=== PATIENT | female | born 1970 | race Caucasian/White ===

== ENCOUNTER 2017-02-08 11:26 | Emergency (ER) | payer BC, OTHER ==
[2017-02-08 12:18] VITALS: BP 174/93
[2017-02-08] MEDS ORDERED: Sodium Chloride 0.9% 500 ML IV SCH (12:30)
[2017-02-08 12:41] LABS: CHLORIDE,CL 101 mmol/L (98-115); SODIUM,NA 141 mmol/L (136-145)
[2017-02-08] MEDS ORDERED: Ondansetron 4 MG/2 ML SDV IVPUSH ONE (12:44)
[2017-02-08] MEDS ORDERED: HYDROmorphone 1 MG/ML Syringe IVPUSH ONE ×3 (12:44→14:57)
[2017-02-08] MEDS ORDERED: Sodium Chloride 0.9% 50 ML SDV IV ONE (13:00)
[2017-02-08] MEDS ORDERED: Iopamidol 612 MG/ML 100 ML Bottle IV ONE (13:00)
[2017-02-08] MEDS ORDERED: Acetaminophen 500 MG Tab PO ONE (13:07)
[2017-02-08] MEDS ORDERED: Sodium Chloride 0.9% 50 ML SDV FLUSH ONE (13:30)
[2017-02-08] MEDS ORDERED: Sulfamethoxazole/Trimethoprim 800-160 MG Tab PO ONE ×2 (14:58→15:33)
[2017-02-08] MEDS ORDERED: metroNIDAZOLE 500 MG Tab PO SCH (15:00)
[2017-02-08] MEDS ORDERED: metroNIDAZOLE 500 MG Tab PO ONE (15:33)
--- NOTE | 2017-02-08 15:42 | EDM.PDOC ---
ED HPI GENERAL MEDICAL PROBLEM - General Chief Complaint: Abdominal Pain Stated Complaint: POSSIBLE KIDNEY STONE OR APPY Time Seen by Provider: 02/08/17 11:40 Source of Information: Reports: Patient History Limitations: Reports: No Limitations - History of Present Illness INITIAL COMMENTS - FREE TEXT/NARRATIVE: 46-year-old female presents to emergency room with complaints of right lower quadrant umbilical pain and right flank pain. Patient reports her symptoms started approximately at midnight last night. Her symptoms seem to worsen by 3: 00 this morning. She rated the pain as 6 out of 10 now. She knows the pain will go anywhere from 12 to stabbing. Is worse when sitting and better with rest. She denied any nausea vomiting or diarrhea. She did feel a mild fevers and chills. She does report a history of complete hysterectomy with removal of the ovaries cholecystectomy. She also has had a history of diverticulitis and she states that her last colonoscopy was 5 years ago. She denies any blood in your urine, denies dysuria, denies blood in her stool or black stools. She denies significant change in her diet and denies anorexia. Onset: Gradual Onset Date: 02/14/17 Onset Time: 00:00 Duration: Hour(s):, Getting Worse Location: Reports: Abdomen Quality: Reports: Dull Severity: Moderate Improves with: Reports: None Worsens with: Reports: None Associated Symptoms: Reports: Fever/Chills. 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 Right Lower Abdominal Pain Score (Numeric/FACES): 6 - Related Data Allergies Allergy/AdvReac Type Severity Reaction Status Date / Time No Known Allergies Allergy Verified 02/08/17 12:18 Home Meds: Home Meds Metoprolol Succinate [Toprol XL] 50 mg PO DAILY 11/05/13 [History] Cyclobenzaprine HCl [Cyclobenzaprine HCl] 10 mg PO DAILY 07/20/16 [History] Ergocalciferol (Vitamin D2) [Vitamin D2] 2,000 unit PO DAILY 07/20/16 [History] Hydrochlorothiazide 25 mg PO DAILY 07/20/16 [History] Multivitamin [Multivitamins] 1 tab PO DAILY 07/20/16 [History] OXcarbazepine [Oxtellar Xr] 150 mg PO BID 07/20/16 [History] metFORMIN HCl [Metformin HCl ER] 2,000 mg PO BID 07/20/16 [History] FLUoxetine [PROzac] 20 mg PO DAILY 02/08/17 [History] Ondansetron [Ondansetron] 1 tab PO ASDIRECTED PRN 02/08/17 [History] SUMAtriptan Succinate [Sumatriptan Succinate] 1 tab PO ASDIRECTED PRN 02/08/17 [ History] Past Medical History HEENT History: Reports: Impaired Vision Cardiovascular History: Reports: High Cholesterol, Hypertension Respiratory History: Reports: Asthma Gastrointestinal History: Reports: Irritable Bowel Syndrome Genitourinary History: Reports: None 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: Musculoskeletal History: Reports: None Neurological History: Reports: Concussion, Headaches, Chronic, Migraines Psychiatric History: Reports: Addiction, Anxiety, Depression, Panic Attack Endocrine/Metabolic History: Reports: Obesity/BMI 30+ Dermatologic History: Reports: Eczema - Infectious Disease History Infectious Disease History: Reports: Chicken Pox, Herpes - Past Surgical History Head Surgeries/Procedures: Reports: None HEENT Surgical History: Reports: None Cardiovascular Surgical History: Reports: None Respiratory Surgical History: Reports: None GI Surgical History: Reports: Cholecystectomy, Colonoscopy, Hernia, Abdominal Female Surgical History: Reports: Section, Hysterectomy, Oophorectomy Endocrine Surgical History: Reports: None Neurological Surgical History: Reports: None Musculoskeletal Surgical History: Reports: Shoulder Surgery Dermatological Surgical History: Reports: None Social & Family History - Tobacco Use Smoking Status *Q: Current Every Day Smoker Years of Tobacco use: 25 Packs/Tins Daily: 2 Used Tobacco, but Quit: No Second Hand Smoke Exposure: Yes - Caffeine Use Caffeine Use: Reports: Coffee - Alcohol Use Days Per Week of Alcohol Use: 4 Number of Drinks Per Day: 15 Total Drinks Per Week: 60 - Recreational Drug Use Recreational Drug Use: No ED ROS GENERAL - Review of Systems Review Of Systems: See Below Constitutional: Reports: Fever. Denies: Chills HEENT: Reports: No Symptoms Respiratory: Reports: No Symptoms Cardiovascular: Reports: No Symptoms Endocrine: Reports: No Symptoms GI/Abdominal: Reports: Abdominal Pain. Denies: Bloody Stool, Constipation, Diarrhea, Distension, Nausea, Vomiting : Reports: Flank Pain. Denies: Dysuria, Hematuria Musculoskeletal: Reports: No Symptoms Skin: Reports: No Symptoms Neurological: Reports: No Symptoms Psychiatric: Reports: No Symptoms Hematologic/Lymphatic: Reports: No Symptoms Immunologic: Reports: No Symptoms ED EXAM, GI/ABD - Physical Exam Exam: See Below Exam Limited By: No Limitations General Appearance: Alert, WD/WN, Mild Distress Eyes: Bilateral: EOMI Ears: Normal External Exam, Normal Canal, Hearing Grossly Normal, Normal TMs Nose: Normal Inspection, No Blood Throat/Mouth: Normal Inspection, Normal Lips, Normal Oropharynx, Normal Voice, No Airway Compromise Head: Atraumatic Neck: Normal Inspection, Supple, Full Range of Motion Respiratory/Chest: No Respiratory Distress, Lungs Clear, Normal Breath Sounds, No Accessory Muscle Use Cardiovascular: Normal Peripheral Pulses, Regular Rate, Rhythm, No Murmur GI/Abdominal: No Organomegaly, No Distention, No Mass, Hypoactive Bowel Sounds, Tenderness (umbilical, right lower quadrant), McBurney's Sign. No: Distention, Guarding, Rigidity, Obturator Sign, Rovsing's Sign, Simpson's Sign, Aortic Pulsation, Aortic Bruit (Female) Exam: Other (history of total hysterectomy) Back Exam: Normal Inspection, Full Range of Motion. No: CVA Tenderness (L), CVA Tenderness (R), Muscle Spasm, Paraspinal Tenderness, Vertebral Tenderness Extremities: Normal Inspection, Normal Range of Motion, Non-Tender, No Pedal Edema, Normal Capillary Refill Neurological: Alert, Oriented, Normal Cognition Psychiatric: Normal Affect, Normal Mood Skin Exam: Warm, Dry, Intact, Normal Color, No Rash Lymphatic: No Adenopathy Course - Vital Signs Last Recorded V/S: Last Vital Signs Temp 99.5 F 02/08/17 13:41 Pulse 115 H 02/08/17 12:14 Resp 16 02/08/17 12:14 BP 174/93 H 02/08/17 12:14 Pulse Ox 96 02/08/17 12:14 - Orders/Labs/Meds Orders: Active Orders 24 hr Category Date Time Status Abdomen Pelvis w Cont [CT] Stat Exams 02/08/17 13:04 Ordered Sodium Chloride 0.9% [Normal Saline] 500 ml Med 02/08/17 12:30 Active IV .BOLUS metroNIDAZOLE [Flagyl] Med 02/08/17 15:00 Active 500 mg PO Q8H Medication Orders Sodium Chloride (Normal Saline) 500 mls @ 1,000 mls/hr IV .BOLUS FELIX Last Admin: 02/08/17 13:05 Dose: 1,000 mls/hr Metronidazole (Flagyl) 500 mg PO Q8H FELIX Last Admin: 02/08/17 15:05 Dose: 500 mg Labs: Laboratory Tests 02/08/17 02/08/17 02/08/17 Range/Units 12:10 12:10 13:05 WBC 13.8 H (5.0-10.0) 10^3/uL RBC 5.10 (3.80-5.50) 10^6/uL Hgb 15.7 (12.0-16.0) g/dL Hct 45.8 (37.0-47.0) % MCV 89.7 (82.0-92.0) fL MCH 30.7 (27.0-31.0) pg MCHC 34.3 (32.0-36.0) g/dL RDW 12.5 (11.5-14.5) % Plt Count 436 H (150-300) 10^3/uL MPV 7.7 (7.4-10.4) fL Neut % (Auto) 76.0 H (50.0-70.0) % Lymph % (Auto) 16.6 L (20.0-40.0) % [place] % (Auto) 6.6 (2.0-8.0) % Eos % (Auto) 0.8 L (1.0-3.0) % Baso % (Auto) 0.0 (0.0-1.0) % Neut # (Auto) 10.5 H (2.5-7.0) 10^3/uL Lymph # (Auto) 2.3 (1.0-4.0) 10^3/uL [place] # (Auto) 0.9 H (0.1-0.8) 10^3/uL Eos # (Auto) 0.1 (0.1-0.3) 10^3/uL Baso # (Auto) 0.0 (0.0-0.1) 10^3/uL Sodium 141 (136-145) mmol/L Potassium 3.6 (3.3-5.3) mmol/L Chloride 101 (98-115) mmol/L Carbon Dioxide 27.2 (21.0-32.0) mmol/L BUN 13 (6-25) mg/dL Creatinine 0.65 (0.51-1.17) mg/dL Est Cr Clr Drug Dosing 89.46 mL/min Estimated GFR (MDRD) > 60 mL/min Glucose 131 H (70-110) mg/dL Calcium 10.0 (8.7-10.3) mg/dL Total Bilirubin 0.3 (0.2-1.0) mg/dL Direct Bilirubin 0.1 (0.0-0.2) mg/dL AST 13 L (15-37) U/L ALT 28 (12-78) U/L Alkaline Phosphatase 134 H (46-116) IU/L Total Protein 8.2 (6.4-8.2) g/dL Albumin 4.03 (3.00-4.80) g/dL Amylase 27 (25-125) U/L Lipase 118 (73-393) U/L Specimen Type Urincc Urine Color Yellow (YELLOW) Urine Appearance Slightly cloudy H (CLEAR) Urine pH 7.0 (5.0-9.0) Ur Specific [place] 1.020 (1.005-1.030) Urine Protein Negative (NEGATIVE) mg/dL Urine Glucose (UA) Negative (NEGATIVE) mg/dL Urine Ketones Negative (NEGATIVE) mg/dL Urine Occult Blood Trace-intact H (NEGATIVE) Urine Nitrite Negative (NEGATIVE) Urine Bilirubin Negative (NEGATIVE) Urine Urobilinogen 0.2 (0.2-1.0) E.U./dL Ur Leukocyte Esterase Negative (NEGATIVE) Urine RBC 0-5 /HPF Urine WBC 0-5 /HPF Ur Epithelial Cells Few /LPF Urine Bacteria Few (NONE TO FEW) /HPF Urine Mucus Moderate H (NEGATIVE) /LPF Meds: Medications Generic Name Dose Route Start Last Admin Trade Name Freq PRN Reason Stop Dose Admin Sodium Chloride 500 mls @ 1,000 mls/hr 02/08/17 12:30 02/08/17 13:05 Normal Saline IV 1,000 mls/hr .BOLUS FELIX Administration Metronidazole 500 mg 02/08/17 15:00 02/08/17 15:05 Flagyl PO 500 mg Q8H FELIX Administration Discontinued Medications Generic Name Dose Route Start Last Admin Trade Name Freq PRN Reason Stop Dose Admin Acetaminophen 1,000 mg 02/08/17 13:07 02/08/17 13:11 Tylenol Extra Strength PO 02/08/17 13:08 1,000 mg ONETIME ONE Administration Hydromorphone HCl 1 mg 02/08/17 12:44 02/08/17 12:59 Dilaudid IVPUSH 02/08/17 12:45 1 mg ONETIME ONE Administration Hydromorphone HCl 1 mg 02/08/17 14:11 02/08/17 14:19 Dilaudid IVPUSH 02/08/17 14:12 1 mg ONETIME ONE Administration Hydromorphone HCl 1 mg 02/08/17 14:57 02/08/17 15:04 Dilaudid IVPUSH 02/08/17 14:58 1 mg ONETIME ONE Administration Metronidazole 1,000 mg 02/08/17 15:33 02/08/17 15:36 Flagyl PO 02/08/17 15:34 Not Given ONETIME ONE Ondansetron HCl 4 mg 02/08/17 12:44 02/08/17 12:57 Zofran IVPUSH 02/08/17 12:45 4 mg ONETIME ONE Administration Trimethoprim/Sulfamethoxazole 1 tab 02/08/17 14:58 02/08/17 15:05 Septra Ds PO 02/08/17 14:59 1 tab ONETIME ONE Administration Trimethoprim/Sulfamethoxazole 1 tab 02/08/17 15:33 02/08/17 15:36 Septra Ds PO 02/08/17 15:34 Not Given ONETIME ONE - Radiology Interpretation Free Text/Narrative:: CT abdomen and pelvis with IV contrast Findings Gallbladder has been resected. Liver spleen pancreas adrenal glands and kidneys are unremarkable. Focal areas of wall thickening and edema in the hepatic flexure of the colon adjacent to numerous colonic diverticuli. There is moderate amount of pericolonic reactive inflammatory change. No apnea stress or pneumoperitoneum T is just perforation Remainder of the colon demonstrates diverticulosis without evidence of inflammation. No small bowel obstruction. The appendix is normal Numerous cyst in the left kidney one of which may contain some milk of calcium or mucosal calcifications Scattered changes of spondylolysis the spine no fracture or osseous lesion Impression Findings in the hepatic flexure of the colon most consistent with an uncomplicated acute diverticulitis. Repeat examination and/or colonoscopy should be considered following appropriate course of treatment to exclude any other underlying pathology. CT Results Date: 02/08/17 CT Results Time: 14:28 - Re-Assessments/Exams Free Text/Narrative Re-Assessment/Exam: 02/08/17 15:51 Patient had a total of 3 mg of Dilaudid and reports that her pain had improved down to a 4 out of 10. On admission her pain was a 7 out of 10. Departure - Departure Time of Disposition: 15:20 Disposition: Home, Self-Care 01 Condition: Good Clinical Impression: Acute diverticulitis - Discharge Information Instructions: Diverticulitis, [id number] Referrals: Roya Prakash [employer] WORKER [Primary Care Provider] - Forms: ED Department Discharge Additional Instructions: 1. Flagyl 500 mg by mouth every 6 hours for 7 days 2. Bactrim DS 1 tab by mouth twice a day for 7 days. 3. Avoid NSAIDs at this time 4. Recommend colonoscopy after resolution of symptoms. He has been 5 years since her last colonoscopy. 5. Encourage and push oral fluids, stool softeners as needed. 6. Follow-up with Roya Prakash NP in 7-10 days or sooner if symptoms persist. - My Orders Last 24 Hours: My Active Orders 02/08/17 12:30 Sodium Chloride 0.9% [Normal Saline] 500 ml IV .BOLUS 02/08/17 13:04 Abdomen Pelvis w Cont [CT] Stat 02/08/17 15:00 metroNIDAZOLE [Flagyl] 500 mg PO Q8H - Assessment/Plan Last 24 Hours: My Active Orders 02/08/17 12:30 Sodium Chloride 0.9% [Normal Saline] 500 ml IV .BOLUS 02/08/17 13:04 Abdomen Pelvis w Cont [CT] Stat 02/08/17 15:00 metroNIDAZOLE [Flagyl] 500 mg PO Q8H Assessment:: Acute diverticulitis Plan: 1. Flagyl 500 mg by mouth every 6 hours for 7 days 2. Bactrim DS 1 tab by mouth twice a day for 7 days. 3. Avoid NSAIDs at this time 4. Recommend colonoscopy after resolution of symptoms. He has been 5 years since her last colonoscopy. 5. Encourage and push oral fluids, stool softeners as needed. 6. Follow-up with Roya Prakash [employer] WORK[employer] in 7-10 days or sooner if symptoms persist. 7. Recommend 48 hours of clear liquid diet only for bowel rest.
[2017-02-09] MEDS ORDERED: Iopamidol 612 MG/ML 100 ML Bottle IVPUSH ONE (06:11)
== END 2017-02-08 15:25 | disposition home or self-care (01) ==
LOC: KA.ED 11:26
DX: K57.92 Diverticulitis of intestine, part unspecified, without perforation or abscess without bleeding (principal); E78.00 Pure hypercholesterolemia, unspecified; J45.909 Unspecified asthma, uncomplicated; F32.9 Major depressive disorder, single episode, unspecified; E66.9 Obesity, unspecified; F17.210 Nicotine dependence, cigarettes, uncomplicated; I10 Essential (primary) hypertension; Z79.899 Other long term (current) drug therapy
CPT/HCPCS: 74177; 80048; 80076; 81001; 82150; 83690; 85025; 96361; 96374; 96375; 96376; 99284; A9270; J1170; J2405; J7040; Q9967

== ENCOUNTER 2017-03-18 14:50 | Emergency (ER) | payer BC ==
[2017-03-18] MEDS ORDERED: Ketorolac 30 MG/ML SDV IM ONE (15:37)
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
[2017-03-18 16:12] VITALS: BP 152/79
[2017-03-18 16:17] LABS: CHLORIDE,CL 100 mmol/L (98-115); SODIUM,NA 139 mmol/L (136-145)
[2017-03-18] MEDS ORDERED: Nitrofurantoin Macrocrystal 50 MG Cap PO ONE (17:11)
[2017-03-18] MEDS ORDERED: Meclizine 25 MG Tab PO ONE (17:11)
[2017-03-18] MEDS ORDERED: Fluconazole 100 MG Tab PO ONE (17:11)
== END 2017-03-18 17:45 | disposition home or self-care (01) ==
LOC: KA.ED 14:50
DX: B37.49 Other urogenital candidiasis (principal); R51 Headache; H54.7 Unspecified visual loss; E78.00 Pure hypercholesterolemia, unspecified; I10 Essential (primary) hypertension; F17.210 Nicotine dependence, cigarettes, uncomplicated; J45.909 Unspecified asthma, uncomplicated; Z90.49 Acquired absence of other specified parts of digestive tract; Z90.710 Acquired absence of both cervix and uterus; Z79.899 Other long term (current) drug therapy
CPT/HCPCS: 36415; 70450; 80048; 81001; 85025; 87086; 87088; 87186; 96372; 99284; A9270; J1885

== ENCOUNTER 2017-09-15 17:12 | Emergency (ER) | payer BC ==
[2017-09-15] MEDS ORDERED: Ondansetron 4 MG/2 ML SDV IVPUSH ONE (17:37)
[2017-09-15] MEDS ORDERED: diphenhydrAMINE 50 MG/ML SDV IVPUSH ONE (17:37)
[2017-09-15] MEDS ORDERED: Sodium Chloride 0.9% 5 ML Syringe FLUSH PRN (17:37)
[2017-09-15] MEDS ORDERED: Albuterol/Ipratropium 3.0-0.5 MG/3 ML Neb Soln NEB ONE (17:37)
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
[2017-09-15] MEDS ORDERED: Sodium Chloride 0.9% 1,000 ML IV ONE (18:05)
[2017-09-15 18:45] LABS: CHLORIDE,CL 101 mmol/L (98-115); SODIUM,NA 141 mmol/L (136-145)
[2017-09-15 19:27] VITALS: BP 144/82
== END 2017-09-15 19:30 | disposition home or self-care (01) ==
LOC: KA.ED 17:12
DX: G43.909 Migraine, unspecified, not intractable, without status migrainosus (principal); J40 Bronchitis, not specified as acute or chronic; B34.9 Viral infection, unspecified; E78.00 Pure hypercholesterolemia, unspecified; I10 Essential (primary) hypertension; F17.210 Nicotine dependence, cigarettes, uncomplicated; Z79.899 Other long term (current) drug therapy
CPT/HCPCS: 70450; 71046; 80048; 85025; 87804; 94640; 96361; 96374; 99284; J1200; J2405; J7030; 96375

== ENCOUNTER 2020-02-01 08:01 | Day surgery (SDC) | payer BC ==
[~2020-02-01 08:01] MED LIST: Midazolam 1 MG/ML 2 ML SDV ONE; Propofol 200 MG/20 ML SDV ONE; Sodium Chloride 0.9% 1,000 ML IV SCH; Sodium Chloride 0.9% 10 ML Syringe FLUSH PRN
[2020-02-01] MEDS ORDERED: Propofol 200 MG/20 ML SDV ONE (08:33)
[2020-02-01] MEDS ORDERED: Propofol 200 MG/20 ML SDV IV ONE (09:00)
[2020-02-01] MEDS ORDERED: Midazolam 1 MG/ML 2 ML SDV IV ONE (09:08)
--- NOTE | 2020-02-01 10:07 | PCM.PRNOTE ---
- Free Text/Narrative Note: PROCEDURE PERFORMED: Colonoscopy PRE-PROCEDURE DIAGNOSIS/INDICATION FOR PROCEDURE: Recurrent diverticulitis; 09/30/19 CT abdomen/pelvis with "Findings involving the mid transverse colon most likely reflect diverticulitis with adjacent inflammatory changes. There is no evidence for abscess formation. Recommend colonoscopy after course of therapy to exclude the possibility for neoplastic process in this region. There was no corresponding finding on the 10/12/2017 CT scan."; last colonoscopy 04/01/20 with left sided diverticulosis CONSENT: Informed consent was obtained prior to the procedure after discussion of the risks (including pain, bleeding, infection, perforation, missed polyps, inability to completely remove polyps or complete procedure necessitating repeat colonoscopy, adverse reaction to anesthesia, cardiovascular event), benefits and alternatives and expected outcomes. The patient expressed understanding and wished to proceed. Verbal consent given and consent form signed. PROCEDURAL PAUSE: Completed SEDATION: Per anesthesia DESCRIPTION OF PROCEDURE: Patient was placed in the left lateral decubitus position. After adequate sedation and anesthetic was administered, a rectal exam was performed revealing no abnormalities. A lubricated Olympus Video Colonoscope was inserted into the rectum and air insufflation was performed. The colonoscope was advanced through the rectum, sigmoid, descending, transverse, and ascending colon without difficulties. The cecum was reached and the ileocecal valve as well as the appendiceal orifice were identified and pictorially documented. After adequate visualization of the cecum, the scope was withdrawn, giving 360-degree views of the colonic mucosa and retroflexion was performed in the rectum with the following findings noted: Ileocecal valve: Normal Cecum: Normal Ascending colon: Scattered small-medium mouth diverticuli Hepatic flexure: Scattered small-medium mouth diverticuli Transverse colon: Scattered small-medium mouth diverticuli Splenic flexure: Scattered small-medium mouth diverticuli Descending colon: Scattered small-medium mouth diverticuli Sigmoid colon: Scattered small-medium mouth diverticuli Rectum: Normal The scope was straightened, air suction performed, and the scope withdrawn without complication. Preparation adequacy good; Woody Bowel Prep 04/11. IMPRESSION: Colonoscopy performed revealing pancolon small-medium mouth diverticulosis without other abnormalities. PLAN: Encourage increased fiber diet and bowel regimen to ensure 1-2 soft bowel movements per day.
[2020-02-01 11:05] VITALS: BP 91/56; PULSE 85
== END 2020-02-01 11:45 | disposition home or self-care (01) ==
LOC: KA.SDS 08:01
PROVIDERS: ATTEND Family Medicine
DX: K57.30 Diverticulosis of large intestine without perforation or abscess without bleeding (principal); E78.2 Mixed hyperlipidemia; F33.41 Major depressive disorder, recurrent, in partial remission; I10 Essential (primary) hypertension; F17.210 Nicotine dependence, cigarettes, uncomplicated; E87.6 Hypokalemia; R51 Headache; G43.709 Chronic migraine without aura, not intractable, without status migrainosus; R73.03 Prediabetes; Z79.899 Other long term (current) drug therapy
CPT/HCPCS: 82962; J2250; J2704; J7030

== ENCOUNTER 2021-08-20 11:02 | Emergency (ER) | payer BC ==
[2021-08-20 11:12] VITALS: BP 121/89
[2021-08-20] MEDS ORDERED: methylPREDNISolone Sodium Succinate 125 MG/2 ML SDV IM ONE (12:05)
[2021-08-20] MEDS ORDERED: Albuterol/Ipratropium 3.0-0.5 MG/3 ML Neb Soln NEB ONE (12:05)
[2021-08-20 12:20] VITALS: PULSE 86
== END 2021-08-20 12:40 | disposition home or self-care (01) ==
LOC: KA.ED 11:02
DX: J20.8 Acute bronchitis due to other specified organisms (principal); E78.00 Pure hypercholesterolemia, unspecified; I10 Essential (primary) hypertension; E66.9 Obesity, unspecified; Z68.27 Body mass index [BMI] 27.0-27.9, adult
CPT/HCPCS: 71046; 87804; 94640; 96372; 99284-25; J2930; J7620-GY

== ENCOUNTER 2022-03-15 05:45 | Emergency (ER) | payer BC ==
[2022-03-15] MEDS: Lidocaine 2% with EPINEPHrine 1:200,000 20 ML SDV INJECT ONE (06:08)
[2022-03-15 06:46] LABS: ANION GAP 13.4 mmol/L (5-15)
[2022-03-15 07:18] VITALS: BP 141/89; PULSE 96
[2022-03-15] MEDS: Ketorolac 60 MG/2 ML SDV IM ONE (07:29)
== END 2022-03-15 07:50 | disposition home or self-care (01) ==
LOC: KA.ED 05:45
DX: S01.01XA Laceration without foreign body of scalp, initial encounter (principal); F10.129 Alcohol abuse with intoxication, unspecified; I10 Essential (primary) hypertension; E66.9 Obesity, unspecified; Z68.30 Body mass index [BMI] 30.0-30.9, adult; Z79.899 Other long term (current) drug therapy; Z79.84 Long term (current) use of oral hypoglycemic drugs; Z90.49 Acquired absence of other specified parts of digestive tract; Z90.710 Acquired absence of both cervix and uterus; Z72.0 Tobacco use; X58.XXXA Exposure to other specified factors, initial encounter
CPT/HCPCS: 12002; 36415; 70450; 80053; 80307; 85025; 96372; 99284; 99284-25; J1885

== ENCOUNTER 2022-04-17 16:14 | Emergency (ER) | payer BC ==
[2022-04-17 16:21] VITALS: BP 163/89; PULSE 85
[2022-04-17 16:49] LABS: ANION GAP 9.9 mmol/L (5-15)
[2022-04-17] MEDS: Ketorolac 30 MG/ML SDV IVPUSH ONE (16:57)
[2022-04-17] MEDS: Amoxicillin/Clavulanate K 875-125 MG Tab PO ONE ×2 (17:01)
== END 2022-04-17 17:10 | disposition home or self-care (01) ==
LOC: KA.ED 16:14
DX: K57.92 Diverticulitis of intestine, part unspecified, without perforation or abscess without bleeding (principal); J45.909 Unspecified asthma, uncomplicated; I10 Essential (primary) hypertension; E11.9 Type 2 diabetes mellitus without complications; E66.9 Obesity, unspecified; Z68.27 Body mass index [BMI] 27.0-27.9, adult; Z79.899 Other long term (current) drug therapy; Z79.84 Long term (current) use of oral hypoglycemic drugs; Z90.49 Acquired absence of other specified parts of digestive tract; Z90.710 Acquired absence of both cervix and uterus
CPT/HCPCS: 36415; 80053; 83605; 83690; 85025; 86140; 96374; 99284; 99284-25; A9270-GY; J1885

== ENCOUNTER 2022-09-08 11:11 | Emergency (ER) | payer BC ==
[2022-09-08] MEDS ORDERED: Nitroglycerin 0.4 MG Tab.SL ONE (11:23)
[2022-09-08] MEDS ORDERED: Aspirin 81 MG Tab.Chew ONE (11:23)
[2022-09-08] MEDS ORDERED: Aspirin 81 MG Tab.Chew PO ONE (11:34)
[2022-09-08] MEDS ORDERED: Nitroglycerin 0.4 MG Tab.SL SL ONE (11:44)
[2022-09-08] MEDS ORDERED: LORazepam 2 MG/ML SDV IVPUSH ONE (11:45)
[2022-09-08 12:05] LABS: ANION GAP 16.6 mmol/L (5-15)
[2022-09-08 14:31] VITALS: BP 127/89; PULSE 89
== END 2022-09-08 14:46 | disposition home or self-care (01) ==
LOC: KA.ED 11:11
DX: J44.9 Chronic obstructive pulmonary disease, unspecified (principal); F41.9 Anxiety disorder, unspecified; I10 Essential (primary) hypertension; E11.9 Type 2 diabetes mellitus without complications; Z79.84 Long term (current) use of oral hypoglycemic drugs; Z79.899 Other long term (current) drug therapy
CPT/HCPCS: 36415; 71045; 80053; 84484; 85025; 93005; 93010; 96374; 99284; 99285-25; A9270-GY; J2060

== ENCOUNTER 2024-11-23 19:50 | Emergency (ER) | payer BC ==
[2024-11-23] MEDS: diphenhydrAMINE 50 MG/ML SDV IVPUSH ONE (20:15)
[2024-11-23] MEDS: Ketorolac 30 MG/ML SDV IVPUSH ONE (20:15)
[2024-11-23] MEDS: Sodium Chloride 0.9% 1,000 ML IV ONE (20:15)
[2024-11-23] MEDS: Ondansetron 4 MG/2 ML SDV IVPUSH ONE (20:15)
[2024-11-23] MEDS ORDERED: Labetalol 100 MG/20 ML MDV IVPUSH ONE (21:06)
[2024-11-23] MEDS: Metoclopramide 10 MG/2 ML SDV IVPUSH ONE (21:29)
[2024-11-23 21:59] VITALS: BP 133/77; PULSE 75
== END 2024-11-23 21:55 | disposition home or self-care (01) ==
LOC: KA.ED 19:50
DX: G43.909 Migraine, unspecified, not intractable, without status migrainosus (principal); I10 Essential (primary) hypertension; J45.909 Unspecified asthma, uncomplicated; E11.9 Type 2 diabetes mellitus without complications; Z79.84 Long term (current) use of oral hypoglycemic drugs; Z79.899 Other long term (current) drug therapy; Z90.49 Acquired absence of other specified parts of digestive tract; Z90.710 Acquired absence of both cervix and uterus
CPT/HCPCS: 96374; 96375; 99283; 99283-25; J1200; J1885; J2405; J2765; J7030

== ENCOUNTER 2025-03-04 00:25 | Emergency (ER) | payer BC ==
[2025-03-04] MEDS: Acetaminophen/oxyCODONE 325-5 MG Tab PO ONE (01:26)
[2025-03-04 03:40] VITALS: BP 125/87; PULSE 87
== END 2025-03-04 02:15 | disposition home or self-care (01) ==
LOC: KA.ED 00:25
DX: S62.102A Fracture of unspecified carpal bone, left wrist, initial encounter for closed fracture (principal); I10 Essential (primary) hypertension; E11.9 Type 2 diabetes mellitus without complications; Z79.84 Long term (current) use of oral hypoglycemic drugs; Z79.899 Other long term (current) drug therapy; Z90.49 Acquired absence of other specified parts of digestive tract; Z90.710 Acquired absence of both cervix and uterus; X50.1XXA Overexertion from prolonged static or awkward postures, initial encounter
CPT/HCPCS: 29125; 73110; 99284; A9270

== ENCOUNTER 2025-06-13 08:46 | Emergency (ER) | payer BC ==
[2025-06-13] MEDS ORDERED: Sodium Chloride 0.9% 10 ML Syringe FLUSH PRN (09:01)
[2025-06-13 09:06] VITALS: BP 159/101; PULSE 121
[2025-06-13 09:07] LABS: BASOPHILS ABSOLUTE AUTO 0.03 10^3/uL (0.00-0.10); BASOPHILS PERCENT AUTO 0.5 % (0.0-1.0); EOSINOPHILS ABSOLUTE AUTO 0.07 10^3/uL (0.10-0.30); EOSINOPHILS PERCENT AUTO 1.2 % (1.0-3.0); IMMATURE GRAN ABSOLUTE AUTO 0.01 10^3/uL (0.00-0.04); IMMATURE GRAN PERCENT AUTO 0.2 % (0.0-0.4); LYMPHOCYTES ABSOLUTE AUTO 2.19 10^3/uL (1.00-4.00); LYMPHOCYTES PERCENT AUTO 37.2 % (20.0-40.0); MEAN PLATELET VOLUME 9.0 fL (7.4-10.4); MONOCYTES ABSOLUTE AUTO 0.45 10^3/uL (0.10-0.80); MONOCYTES PERCENT AUTO 7.6 % (2.0-8.0); NEUTROPHILS ABSOLUTE AUTO 3.14 10^3/uL (2.50-7.00); NEUTROPHILS PERCENT AUTO 53.3 % (50.0-70.0); PLATELET COUNT,PLT 480 10^3/uL (150-400); RED BLOOD CELL COUNT 4.39 10^6/uL (3.80-5.50); RED CELL DISTRIBUTION WIDTH 12.8 % (11.5-14.5); WHITE BLOOD CELL COUNT,WBC 5.89 10^3/uL (5.00-10.00)
[2025-06-13 09:22] LABS: LACTIC ACID 1.3 mmol/L (0.4-2.0)
[2025-06-13 09:33] LABS: B-TYPE NATRIURETIC PEPTIDE,BNP 8 pg/mL (0-100)
[2025-06-13 09:41] LABS: ALANINE AMINOTRANSFERASE,ALT 28 U/L (14-63); ASPARTATE AMNIOTRANSFERASE,AST 17 U/L (15-37); BILIRUBIN TOTAL 0.3 mg/dL (0.2-1.0); BLOOD UREA NITROGEN,BUN 8 mg/dL (7-18); CARBON DIOXIDE,CO2 23.3 mmol/L (21.0-32.0); CHLORIDE,CL 106 mmol/L (98-107); CREATININE 0.56 mg/dL (0.51-1.17); EST CRCL DRUG DOSING (CG) 95.00 mL/min; GLUCOSE RANDOM 112 mg/dL (70-140); POTASSIUM,K 3.8 mmol/L (3.5-5.1); PROTEIN TOTAL,TP 8.1 g/dL (6.4-8.2); SODIUM,NA 145 mmol/L (136-145)
[2025-06-13 09:44] LABS: APPEARANCE,URINE CLEAR (CLEAR); GLUCOSE,URINE NEGATIVE (NEGATIVE); OCCULT BLOOD,URINE NEGATIVE (NEGATIVE)
[2025-06-13 09:44] LABS: ESTIMATED GFR 108 mL/min (>=60)
[2025-06-13] MEDS: Ondansetron 4 MG/2 ML SDV IVPUSH ONE (09:45)
[2025-06-13 09:46] LABS: ETHANOL BLOOD MEDICAL 200 mg/dL (<3)
[2025-06-13 09:54] LABS: AMPHETAMINES SCREEN, URINE NEGATIVE (NEGATIVE); COCAINE METABOLITES,URINE NEGATIVE (NEGATIVE); METHADONE SCREEN, URINE NEGATIVE (NEGATIVE); METHAMPHETAMINES SCREEN, URINE NEGATIVE (NEGATIVE); OXYCODONE SCREEN,URINE NEGATIVE (NEGATIVE); PCP SCREEN,URINE NEGATIVE (NEGATIVE); TCA SCREEN,URINE NEGATIVE (NEGATIVE); THC SCREEN,URINE 50 NG/ML NEGATIVE (NEGATIVE)
== END 2025-06-13 12:22 | disposition home or self-care (01) ==
LOC: KA.ED 08:46
DX: F10.129 Alcohol abuse with intoxication, unspecified (principal); R45.851 Suicidal ideations; F32.89 Other specified depressive episodes; I10 Essential (primary) hypertension; E11.9 Type 2 diabetes mellitus without complications; E86.0 Dehydration; F17.200 Nicotine dependence, unspecified, uncomplicated; Z79.84 Long term (current) use of oral hypoglycemic drugs; Z79.899 Other long term (current) drug therapy; Z90.49 Acquired absence of other specified parts of digestive tract; Z90.710 Acquired absence of both cervix and uterus
CPT/HCPCS: 71045; 80053; 80143; 80305-QW; 80307; 81003; 82150; 83605; 83690; 83880; 84484; 85025; 86140; 93010; 96361; 96374; 99284; 99285-25; J2405; J7030